=== PATIENT | female | born 2000 | race Caucasian/White ===

== ENCOUNTER 2022-09-06 10:42 | Emergency (ER) | payer BC, MEDICARE, SELFPAY ==
[2022-09-06 10:57] VITALS: BP 119/77; PULSE 75; RESP 18; TEMP 37.1; O2SAT 99; BMI 22.6
--- NOTE | 2022-09-06 13:42 | PC.NURSE ---
[facility] nurse here for exam
[2022-09-06] MEDS: IBUPROFEN 200 MG TABLET 600 MG PO (16:15)
--- NOTE | 2022-09-06 23:36 | ED_ITS ---
ED Chart Note Chart Note Details Date: 09/06/22 Details: This case [facility] I did introduce myself and inquire with Ginette and her mother whether not they needed anything. Was informed later that with a headache would appreciate some medication for that. Was prescribed 600 mg of ibuprofen. [facility] for further information about this case.
== END 2022-09-06 16:34 | disposition home or self-care (01) ==
PROVIDERS: Emergency Provider Family Medicine
DX: T74.21XA Adult sexual abuse, confirmed, initial encounter (principal)
CPT/HCPCS: 99283; A9270